=== PATIENT | male | born 1965 | race Caucasian/White ===

== ENCOUNTER 2021-01-10 08:00 | Observation (INO) | payer OTHER ==
[~2021-01-10 08:00] MED LIST: AMLODIPINE BESYL5 MG PO; BIKTARVY 50-201 EACH PO; ELIQUIS5 MG PO; KAPSPARGO SPRI100 MG PO; LOSARTAN POTASS25 MG PO; MULTI-VITAMIN1 EACH PO; ROPIVACAINE 246.25 MG, EPINEPHRINE HCL 1:1000 1ML 0.5 MG, CLONIDINE HCL 0.08 MG, KETORO... INJ ONE
[2021-01-10] MEDS ORDERED: GABAPENTIN 300 MG CAP ONE (08:48)
[2021-01-10] MEDS ORDERED: SODIUM CHLORIDE 0.9% 50ML 100 ML ONE (08:48)
[2021-01-10] MEDS ORDERED: DEXAMETHASONE SOD PHOS 10 MG/1 ML VIAL ONE (08:48)
[2021-01-10] MEDS ORDERED: CELECOXIB 200 MG CAP ONE (08:48)
[2021-01-10] MEDS ORDERED: SODIUM CHLORIDE 0.9% 500ML 500 ML ONE (09:51)
[2021-01-10] MEDS ORDERED: Vancomycin IV 1,000 MG ONE (09:51)
[2021-01-10] MEDS ORDERED: BUPIVACAINE 7.5MG/ML /DEXTROSE 82.5MG/ML 2 ML AMP INJ ONE (09:56)
[2021-01-10] MEDS ORDERED: FENTANYL CITRATE/PF 100MCG/2 ML INJ ONE (12:31)
[2021-01-10] MEDS ORDERED: PROPOFOL IV EMULSION 10 MG/ML 20 ML VIAL ONE (13:33)
[2021-01-10] MEDS ORDERED: EPHEDRINE SULFATE INJ 50 MG/ML VIAL ONE (13:33)
[2021-01-10] MEDS ORDERED: LIDOCAINE HCL 2% LOCAL INJ 5 ML SDV VIAL INJ ONE (13:33)
[2021-01-10] MEDS ORDERED: SEVOFLURANE INHAL SOLN 250 ML PEN BTL ONE (13:33)
[2021-01-10] MEDS ORDERED: ONDANSETRON HCL INJ 2MG/ML 2ML 2 MG/ML VIAL ONE (13:33)
[2021-01-10] MEDS ORDERED: POVIDONE IODINE 0.05% 0.05 % ML PO ONE (13:33)
[2021-01-10 14:00] VITALS: BP 117/82
[2021-01-10] MEDS ORDERED: ONDANSETRON HCL INJ 2MG/ML 2ML 2 MG/ML VIAL IV PRN (14:30)
[2021-01-10] MEDS ORDERED: HYDROCODONE/APAP 7.5MG-325MG 1 EA TAB PO PRN (14:30)
[2021-01-10] MEDS ORDERED: KETOROLAC TROMETHAMINE 30 MG/ML VIAL IV PRN (14:30)
[2021-01-10] MEDS ORDERED: DIPHENHYDRAMINE HCL INJ 50 MG/ML VIAL IV PRN (14:30)
[2021-01-10] MEDS ORDERED: HYDROCODONE/APAP 5MG-325MG TAB PO PRN (14:30)
[2021-01-10] MEDS ORDERED: SODIUM CHLORIDE 0.9% 1000ML 1,000 ML IV SCH (15:00)
[2021-01-10] MEDS ORDERED: ACETAMINOPHEN 1000 MG/100 ML IV PRN (16:00)
[2021-01-10] MEDS ORDERED: ASPIRIN 81 MG ENTERIC COATED PO SCH (17:00)
[2021-01-10] MEDS ORDERED: CELECOXIB 200 MG CAP PO SCH (17:00)
[2021-01-10] MEDS ORDERED: Cefazolin 1 GM in SODIUM CHLORIDE 0.9% 50ML 50 ML IV SCH (17:00)
[2021-01-10] MEDS ORDERED: DOCUSATE SODIUM 100 MG CAP PO SCH (17:00)
[2021-01-10] MEDS ORDERED: ZOLPIDEM TARTRATE 5 MG TAB PO PRN (21:00)
[2021-01-11] MEDS ORDERED: AMLODIPINE BESYLATE 5 MG TAB PO SCH (11:22)
[2021-01-11] MEDS ORDERED: METOPROLOL SUCCINATE 50 MG TAB XL PO SCH (12:00)
[2021-01-11] MEDS ORDERED: HYDROCODONE/APAP 7.5MG-325MG 1 EA TAB ONE (13:56)
[2021-01-11] MEDS ORDERED: LOSARTAN POTASSIUM 25 MG TAB PO SCH (17:00)
[2021-01-12] MEDS ORDERED: MULTIVITAMINS/MINERALS TAB PO SCH (09:00)
[2021-01-12] MEDS ORDERED: HOME MEDICATION--PATIENTS OWN PO SCH (09:00)
[2021-01-12] MEDS ORDERED: APIXABAN 5 MG TABLET PO SCH (09:00)
== END 2021-01-11 15:38 | disposition home or self-care (01) ==
LOC: OR 08:00 → MED/SURG 12:30
PROVIDERS: ADMIT Specialist; ATTEND Specialist
DX: M16.0 Bilateral primary osteoarthritis of hip (principal); Z79.01 Long term (current) use of anticoagulants; Z21 Asymptomatic human immunodeficiency virus [HIV] infection status; B19.20 Unspecified viral hepatitis C without hepatic coma; I10 Essential (primary) hypertension; Z01.818 Encounter for other preprocedural examination; I48.19 Other persistent atrial fibrillation; I48.92 Unspecified atrial flutter
CPT/HCPCS: 27130; 71046; 72170; 97110; 97116 ×2; 97162; 97530; G0378 ×2; J0171; J0690; J1100; J1885; J2795; J3010; J3370; J7040; J2001; J2405

== ENCOUNTER → 2021-01-19 | Outpatient (RCR) | payer OTHER ==
[~2021-01-19] MED LIST changes: -ROPIVACAINE 246.25 MG, EPINEPHRINE HCL 1:1000 1ML 0.5 MG, CLONIDINE HCL 0.08 MG, KETORO... INJ ONE
== END ==
LOC: PT 16:09
PROVIDERS: ATTEND Physician Assistant
DX: Z47.1 Aftercare following joint replacement surgery (principal); Z96.641 Presence of right artificial hip joint

== ENCOUNTER 2021-02-18 13:00 | Outpatient (RCR) | payer OTHER | END 2021-02-19 | LOC: PT 13:00 | PROVIDERS: ATTEND Physician Assistant | DX: Z47.1 Aftercare following joint replacement surgery (principal); Z96.641 Presence of right artificial hip joint; M25.551 Pain in right hip; M25.651 Stiffness of right hip, not elsewhere classified; R26.89 Other abnormalities of gait and mobility; M62.81 Muscle weakness (generalized) ==

== ENCOUNTER 2021-03-14 08:03 | Observation (INO) | payer OTHER ==
[2021-03-11 08:33] LABS: BASOPHILS % 0.6 % (0.0-1.0); EOSINOPHILS # (AUTO) 0.1 (0.0-0.4); HEMATOCRIT 45.5 % (38.2-49.6); HEMOGLOBIN 15.5 g/dL (14.0-18.0); LYMPHOCYTES # (AUTO) 1.3 (1.0-3.2); LYMPHOCYTES % 26.3 % (18.0-39.1); MEAN CORPUSCULAR HEMOGLOBIN 31.8 pg (28-32); MEAN CORPUSCULAR HGB CONC 34.1 g/dL (31-35); MEAN CORPUSCULAR VOLUME 93.4 fL (81-99); MONOCYTES # (AUTO) 0.6 (0.2-0.8); NEUTROPHILS # (AUTO) 3.1 (2.1-6.9); NEUTROPHILS % 59.9 % (38.7-80.0); PLATELET COUNT 123 x10e3/uL (140-360); RED BLOOD COUNT 4.87 x10e6/uL (4.3-5.7)
[2021-03-11 09:29] LABS: ALBUMIN 3.9 g/dL (3.5-5.0); ALBUMIN/GLOBULIN RATIO 0.8 (0.8-2.0); ANION GAP 19.6 mmol/L (8-16); CALCIUM 9.6 mg/dL (8.4-10.2); CREATININE, SERUM 1.14 mg/dL (0.72-1.25); POTASSIUM 3.6 mmol/L (3.5-5.1)
[2021-03-11 09:30] LABS: INR 1.06
[2021-03-11 09:31] LABS: PARTIAL THROMBOPLASTIN TIME 31.5 seconds (23.8-35.5)
[~2021-03-14] VITALS: Ht 177.8 cm; Wt 85.3 kg
[~2021-03-14 08:03] MED LIST changes: +ROPIVACAINE 246.25 MG, EPINEPHRINE HCL 1:1000 1ML 0.5 MG, CLONIDINE HCL 0.08 MG, KETORO... INJ ONE; +SOFOSBUVIR PO; +VELPATASVIR PO
[2021-03-14] MEDS ORDERED: CELECOXIB 200 MG CAP ONE (08:26)
[2021-03-14] MEDS ORDERED: GABAPENTIN 300 MG CAP ONE (08:26)
[2021-03-14] MEDS ORDERED: DEXAMETHASONE SOD PHOS 10 MG/1 ML VIAL ONE (08:26)
[2021-03-14] MEDS ORDERED: BUPIVACAINE 7.5MG/ML /DEXTROSE 82.5MG/ML 2 ML AMP INJ ONE (09:27)
[2021-03-14] MEDS ORDERED: Vancomycin IV 1,000 MG ONE (09:43)
[2021-03-14] MEDS ORDERED: SODIUM CHLORIDE 0.9% 500ML 500 ML ONE (09:43)
[2021-03-14] MEDS ORDERED: TRANEXAMIC ACID 1,000 MG/10 ML ML ONE (09:43)
[2021-03-14] MEDS ORDERED: SODIUM CHLORIDE 0.9% 1000ML 1,000 ML IV SCH (12:00)
[2021-03-14] MEDS ORDERED: DOCUSATE SODIUM 100 MG CAP PO PRN (12:00)
[2021-03-14] MEDS ORDERED: ACETAMINOPHEN 650 MG SUPP PR PRN (12:00)
[2021-03-14] MEDS ORDERED: HYDROCODONE/APAP 7.5MG-325MG 1 EA TAB PO PRN (12:00)
[2021-03-14] MEDS ORDERED: KETOROLAC TROMETHAMINE 30 MG/ML VIAL IV PRN (12:00)
[2021-03-14] MEDS ORDERED: DIPHENHYDRAMINE HCL INJ 50 MG/ML VIAL IV PRN (12:00)
[2021-03-14] MEDS ORDERED: HYDROCODONE/APAP 5MG-325MG TAB PO PRN (12:00)
[2021-03-14] MEDS ORDERED: ONDANSETRON HCL INJ 2MG/ML 2ML 2 MG/ML VIAL IV PRN (12:00)
[2021-03-14 13:54] VITALS: BP 134/95
[2021-03-14 14:11] VITALS: BP 134/95
[2021-03-14 14:12] VITALS: BP 134/95
[2021-03-14] MEDS ORDERED: ACETAMINOPHEN 1000 MG/100 ML IV PRN (15:00)
[2021-03-14 15:22] VITALS: BP 129/86
[2021-03-14] MEDS ORDERED: ASPIRIN 325 MG TAB PO SCH (17:00)
[2021-03-14] MEDS ORDERED: CELECOXIB 100 MG CAP PO SCH (17:00)
[2021-03-14] MEDS ORDERED: Cefazolin 1 GM in SODIUM CHLORIDE 0.9% 50ML 50 ML IV SCH (18:00)
[2021-03-14] MEDS ORDERED: ZOLPIDEM TARTRATE 5 MG TAB PO PRN (21:00)
== END 2021-03-14 18:56 | disposition home or self-care (01) ==
LOC: OR 08:03 → PACU V 11:50 → MED/SURG 13:44
PROVIDERS: ADMIT Specialist; ATTEND Specialist
DX: M16.12 Unilateral primary osteoarthritis, left hip (principal); I48.91 Unspecified atrial fibrillation; Z21 Asymptomatic human immunodeficiency virus [HIV] infection status; I10 Essential (primary) hypertension; B19.20 Unspecified viral hepatitis C without hepatic coma; K74.60 Unspecified cirrhosis of liver; Z72.89 Other problems related to lifestyle; Z96.641 Presence of right artificial hip joint; Z01.812 Encounter for preprocedural laboratory examination; Z20.822 Contact with and (suspected) exposure to COVID-19
CPT/HCPCS: 27130; 36415; 72170; 80053; 85025; 85610; 85730; 86850; 86900; 86920; 97110; 97116; 97161; C1713 ×3; C1776 ×2; G0378; J0171; J0690; J1100; J1885; J2795; J3370; J7030; J7040; U0002

== ENCOUNTER 2021-03-21 12:53 | Outpatient (RCR) | payer OTHER ==
[~2021-03-21 12:53] MED LIST changes: -ROPIVACAINE 246.25 MG, EPINEPHRINE HCL 1:1000 1ML 0.5 MG, CLONIDINE HCL 0.08 MG, KETORO... INJ ONE
== END 2021-03-22 ==
LOC: PT 12:53
PROVIDERS: ATTEND Physician Assistant
DX: Z47.1 Aftercare following joint replacement surgery (principal); Z96.642 Presence of left artificial hip joint

== ENCOUNTER → 2021-04-21 | Outpatient (RCR) | payer OTHER | LOC: PT 03-23 15:22 | PROVIDERS: ATTEND Physician Assistant | DX: Z47.1 Aftercare following joint replacement surgery (principal); Z96.642 Presence of left artificial hip joint; M62.81 Muscle weakness (generalized); M25.552 Pain in left hip; M25.652 Stiffness of left hip, not elsewhere classified | CPT/HCPCS: 97139 ==

== ENCOUNTER 2021-04-25 15:48 | Outpatient (RCR) | payer OTHER | END 2021-05-22 | LOC: PT 15:48 | PROVIDERS: ATTEND Physician Assistant | DX: Z47.1 Aftercare following joint replacement surgery (principal); Z96.642 Presence of left artificial hip joint ==